=== PATIENT | female | born 1960 | race Two or more races ===

== ENCOUNTER 2023-11-09 21:32 | Emergency (ER) | payer OTHER ==
[~2023-11-09] VITALS: Ht 165.1 cm; Wt 104.3 kg
[2023-11-09 21:34] VITALS: BP 117/76; PULSE 90; RESP 16; TEMP 99.4; O2SAT 91
[2023-11-09 23:15] LABS: BASOPHILS % (AUTO) 0.2 % (0.0-2.0); HEMATOCRIT 47.1 % (36-48); HEMOGLOBIN 15.5 g/dL (12.0-16.0); LYMPHOCYTES # (AUTO) 1.4 K/uL (2.5-16.5); MEAN CORPUSCULAR HEMOGLOBIN 27 pg (27-31); MEAN CORPUSCULAR HGB CONC 33 g/dL (33-37); MEAN CORPUSCULAR VOLUME 81.2 fL (80-94); MONOCYTES # (AUTO) 1.1 K/uL (0.8-1.0); MONOCYTES % (AUTO) 7.9 % (1.7-9.3); NEUTROPHILS # (AUTO) 11.7 K/uL (1.8-7.7); NEUTROPHILS % (AUTO) 81.9 % (42.2-75.2); PLATELET COUNT (AUTO) 251 K/uL (140-450); RED CELL DISTRIBUTION WIDTH 16.7 % (11.6-13.7); WHITE BLOOD COUNT (AUTO) 14.3 K/uL (4.8-10.8)
[2023-11-09] MEDS: NACL 0.9% 1,000 ML IV ONE (23:25)
[2023-11-09 23:26] LABS: ANION GAP 16.2 (8-16); CALCIUM 9.2 mg/dL (8.5-10.1); CARBON DIOXIDE 25.7 mmol/L (21-32); CREATININE 1.5 mg/dL (0.6-1.3); POTASSIUM 3.9 mmol/L (3.5-5.1)
[2023-11-09 23:37] LABS: LACTIC ACID 1.6 mmol/L (0.4-2.0)
[2023-11-09 23:41] LABS: ALANINE AMINOTRANSFERASE 30 U/L (12-78); ALBUMIN 4.2 g/dL (3.4-5.0); ALKALINE PHOSPHATASE 99 U/L (50-136); ASPARTATE AMINOTRANSFERASE 39 U/L (15-37); BILIRUBIN,DIRECT 0.3 mg/dL (0.0-0.3); TOTAL BILIRUBIN 1.8 mg/dL (0.0-1.0); TOTAL PROTEIN, SERUM 7.9 g/dL (6.4-8.2)
[2023-11-10 00:19] LABS: BLOOD GAS BASE EXCESS 0.3 mmol/L (-2.0-3.0); BLOOD GAS HCO3 24.8 mmol/L (21.0-28.0); BLOOD GAS PCO2 39.8 mmHg (32.0-45.0); BLOOD GAS PH 7.413 (7.350-7.450); BLOOD GAS PO2 79.6 mmHg (83.0-108.0)
[2023-11-10 00:20] LABS: BLOOD GAS O2 SAT% 95.9 % (94.0-98.0)
[2023-11-10 01:01] LABS: APPEARANCE,URINE CLEAR (CLEAR); BILIRUBIN,URINE 2+ (NEGATIVE); BLOOD, URINE NEGATIVE (NEGATIVE); COLOR,URINE YELLOW (YELLOW); LEUKOCYTE ESTERASE ,URINE NEGATIVE (NEGATIVE); NITRITE, URINE NEGATIVE (NEGATIVE); PROTEIN,URINE 1+ (NEGATIVE); UGLUCOSE NEGATIVE (NEGATIVE); UROBILINOGEN,URINE 0.2 EU/dL (0.2 - 1)
[2023-11-10 01:03] LABS: ICTOTEST POSITIVE (NEGATIVE)
[2023-11-10 01:11] LABS: AMPHETAMINE, URINE NEGATIVE ng/ml (NEG <=1000); BARBITURATE, URINE NEGATIVE ng/ml (NEG <=200); BENZODIAZEPINE, URINE NEGATIVE ng/mL (NEG <=200); CANNABINOID, URINE NEGATIVE ng/mL (NEG <=50); COCAINE, URINE NEGATIVE ng/mL (NEG <=300); OPIATE, URINE NEGATIVE ng/mL (NEG <=2000); PHENCYCLIDINE SCREEN,URINE NEGATIVE ng/mL (NEG <=25)
[2023-11-10 02:02] LABS: FLU A ANTIGEN negative (NEGATIVE); FLU B ANTIGEN NEGATIVE (NEGATIVE)
[2023-11-10] MEDS ORDERED: cefTRIAXone 1,000 MG VIAL ONE (02:52)
[2023-11-10] MEDS ORDERED: AZITHROMYCIN 500 MG INJ VIAL IV ONE (02:52)
[2023-11-10] MEDS: AZITHROMYCIN 500 MG in DEXTROSE 5% 250 ML IV ONE (03:06)
[2023-11-10] MEDS: NACL 0.9% 1,000 ML IV ONE (03:45)
[2023-11-10] MEDS: ALBUTEROL SULFATE/IPRATROPIU 3 ML SOL IH ONE (04:33)
[2023-11-10 04:36] VITALS: PULSE 72; PULSE 76; RESP 18; RESP 20; O2SAT 93
[2023-11-10 06:44] VITALS: BP 112/49; PULSE 73; RESP 15; TEMP 98.9; O2SAT 95
== END 2023-11-10 06:45 | disposition short-term general hospital (02) ==
LOC: MED 21:32
DX: J18.9 Pneumonia, unspecified organism (principal); R79.89 Other specified abnormal findings of blood chemistry; E86.0 Dehydration; G93.41 Metabolic encephalopathy; R94.31 Abnormal electrocardiogram [ECG] [EKG]; J45.909 Unspecified asthma, uncomplicated; Z20.822 Contact with and (suspected) exposure to COVID-19
CPT/HCPCS: 36415; 36600; 70450; 71045; 74176; 80048; 80076; 80305; 81003; 82140; 82803; 83605; 84484; 85025; 87040; 87426; 87804; 93005; 94640; 96361; 96365; 96368; 99285; J0456; J0696; J7030